=== PATIENT | male | born 1950 | race Caucasian/White ===

== ENCOUNTER 2016-05-24 07:51 | Observation (INO) | payer OTHER ==
[2016-05-23 10:33] LABS: BASOPHILS 0.2 %; BASOPHILS ABSOLUTE 0.02 10/3/uL (0.0-0.16); EOSINOPHILS 0.7 %; EOSINOPHILS ABSOLUTE 0.07 10/3/uL (0.0-0.53); HEMATOCRIT 30.8 % (40.0-51.0); HEMOGLOBIN 9.9 g/dL (13.6-17.8); IMMATURE GRANULOCYTES 0.7 %; IMMATURE GRANULOCYTES ABSOLUTE 0.07 10/3/uL (0.0-0.11); LYMPHOCYTES 18.3 %; LYMPHOCYTES ABSOLUTE 1.96 10/3/uL (0.67-4.30); MANUAL DIFF NO %; MEAN CORPUS HGB CONC 32.1 g/dL (32.0-36.0); MEAN CORPUSCULAR HEMOGLOB 34.4 pg (26.0-34.0); MEAN CORPUSCULAR VOLUME 106.9 fL (80-100); MEAN PLATELET VOLUME 9.3 fL (9.2-13.0); MONOCYTES 7.8 %; MONOCYTES ABSOLUTE 0.83 10/3/uL (0.21-1.20); NEUTROPHILS 72.3 %; NEUTROPHILS ABSOLUTE 7.75 10/3/uL (2.02-8.40); PLATELET COUNT 285 10/3/uL (150-400); RBC DISTRIBUTION WIDTH 17.5 % (12.0-16.0); RED CELL COUNT 2.88 10/6/uL (4.7-6.1); WHITE BLOOD CELLS 10.7 10/3/uL (4.5-10.5)
[2016-05-23 10:38] LABS: PARTIAL THROMBO TIME 29.6 SEC (22.5-37.2); PROTIME (NOT ORD) 13.3 SEC (12.0-14.5)
[2016-05-23 10:56] LABS: ALBUMIN 2.7 G/DL (3.5-5.0); ALKALINE PHOSPHATASE 220 U/L (45-117); BUN (BLOOD UREA NITROGEN) 27 MG/DL (6-23); CHLORIDE, SERUM 105 MMOL/L (96-112); CO2 (CARBON DIOXIDE) 24 MMOL/L (24-34); CREATININE 1.01 MG/DL (0.70-1.30); DIRECT BILIRUBIN 0.2 MG/DL (0.0-0.4); GFR AFRICAN AMERICAN 89 ML/MIN (>=60); GFR NON AFRICAN AMERICAN 77 ML/MIN (>=60); GLUCOSE, SERUM 125 MG/DL (60-99); INDIRECT BILIRUBIN(NOT ORDER) 0.3 MG/DL (0.1-0.9); POTASSIUM, SERUM 5.3 MMOL/L (3.5-5.3); SGOT(AST) 35 U/L (5-40); SGPT(ALT) 25 U/L (5-65); SODIUM, SERUM 138 MMOL/L (135-148); TOTAL BILIRUBIN 0.5 MG/DL (0-1.2); TOTAL PROTEIN 7.7 G/DL (6.0-8.5)
--- NOTE | ~2016-05-24 | CN ---
Consultation Report [facility] [address] [place]. [address] NAME: ALVIN EL : 50 STATUS : REG [facility] [place] PAT#: [id number] AGE: 66 ADM/REG DATE : 05/24/16 MR#: [id number] REPORT SERV DATE: 05/24/16 DICTATED BY: BIBIANA CANSECO DATE: 05/24/16 REPORT STATUS : Draft TRANSCRIBED BY: MODL DATE: 05/24/16 CARDIOLOGY CONSULTATION DATE OF CONSULTATION: 05/24/2016 REFERRING PHYSICIAN: Izaiah Luis MD, from ENT. REFERRING REASON: Postoperative chest pain and ischemic ECG changes. 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 Luis. I have limited outside records. The patient per Dr. Mack had poorly controlled hypertension prior to surgery at 200/102, but denied chest pain. The patient confirmed to me that he denied any recent chest pain. After he returned from surgery and woke up, he developed chest pain with 1.[address] depression in anterolateral leads, and troponin was found to be 0.05. After he received nitroglycerin and aspirin, his chest pain resolved and his ST-segment also resolved. He is currently chest pain free and hemodynamically stable. The patient has a long history of diabetes, long history of smoking, and hypertension. He also has some signs of LVH on echocardiogram in 2014 with preserved systolic function and elevated right-sided pressures with RVSP of 41 mmHg. He denies any chest pain or prior cardiac stress testing, but there is chronic dyspnea on exertion. He has reported on chronic disability for some depression and orthopedic issues. He has been battling large left facial tumor since 2014. He underwent a squamous cell of his left nostril surgery by Dr. Hemphill in 10/2014. He just presented with another advanced cancer which is reportedly protruding into the brain cavity. He has not seen by oncologist. I had a long discussion with his ENT surgeon and complete staging still need to be performed, but rightly palliative treatment with radiation or chemotherapy will be most appropriate. The rest of the review of systems is negative. PAST MEDICAL HISTORY: 1. 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 2. History of left nostril surgery by Dr. Hemphill in 10/2014 for squamous cell carcinoma. 3. Left facial paralysis. 4. Hypertension, poorly controlled. 5. Diabetes mellitus. 6. Smoking dependency. 7. Likely COPD. 8. LVH on echocardiogram in 2014 with preserved systolic function and mildly elevated right-sided pressures. Consultation Report [address] [place]. [address] NAME: ALVIN EL : 50 STATUS : REG [facility] – [place] PAT#: [id number] AGE: 66 ADM/REG DATE : 05/24/16 MR#: [id number] REPORT SERV DATE: 05/24/16 DICTATED BY: BIBIANA CANSECO DATE: 05/24/16 REPORT STATUS : Draft TRANSCRIBED BY: ALBAN DATE: 05/24/16 ALLERGIES: NO KNOWN DRUG ALLERGIES. HOME MEDICATIONS: Tegretol, Neurontin, insulin, lisinopril 30 mg once a day, Prilosec 40 mg once a day, trazodone, and metformin. SOCIAL HISTORY: The patient is on full disability. He lives with his girlfriend. He walks without any support. He has been smoking for the last 60 years one pack a day. Denies drinking alcohol or using street drugs. FAMILY HISTORY: Negative for sudden cardiac and premature coronary artery disease in the family. PHYSICAL EXAMINATION: GENERAL: Elderly apnea gentleman who looks older than his biological age with left facial nerve paralysis and surgical bandage over his left eye. There is some mild bleeding from his nose. HEENT: Pupils reactive to light and accommodation. Moist mucosa membrane. NECK: No JVD. Normal carotid upstroke. No carotid bruits. LUNGS: Decreased breath sounds with diffuse wheezing. COR: Normal S1, S2. No S3 or S4. No significant rub or murmurs. ABD: Soft, nontender, nondistended. EXTREMITIES: Decreased pedal pulses bilaterally, but no edema. SKIN: Warm with normal turgor. MS: No kyphosis. NEURO/PSY: Alert and oriented. Nonfocal. DATA: CBC is remarkable for hemoglobin 9.9, leukocytosis 10,000. Electrolytes yesterday were within normal limits. He has elevated glucose. ALP now is 220. Troponin 0.05. Electrocardiogram yesterday, on 05/23/2016 at 10:12 before the surgery revealed normal sinus rhythm 88 beats per minute with old anteroseptal NM. Borderline signs of LVH. After the surgery this afternoon at 12:30 p.m. revealed sinus tachycardia at 106 beats per minute with anteroseptal NM. LVH and 1.[address] depression in anterolateral leads, currently on monitor the ST-segment depression normalized. ASSESSMENT AND PLAN: 1. Status post left facial cancer extending to the brain cavity. 2. Demand ischemia. 3. Poorly controlled hypertension. The patient received aspirin and he is currently chest pain free. I would start him on Toprol-XL and do the echocardiogram. He is going to remain on Dr. Barraza's care overnight for observation. We will follow the cardiac enzymes and plan electrocardiogram and echocardiogram tomorrow. If his cardiac enzymes continue to go up, likely the patient should stay in the hospital and being seen by the oncologist about the prognosis which will determine if we will proceed with interventional evaluation of his coronary anatomy or not. Consultation Report [address] [address] NAME: ALVIN EL : 50 STATUS : REG [facility] – [place] PAT#: [id number] AGE: 66 ADM/REG DATE : 05/24/16 MR#: [id number] REPORT SERV DATE: 05/24/16 DICTATED BY: BIBIANA CANSECO DATE: 05/24/16 REPORT STATUS : Draft TRANSCRIBED BY: ALBAN DATE: 05/24/16 Based on my discussion with the ENT surgeon, very likely a palliative care will be appropriate. The patient is currently chest pain free, hemodynamically stable. We will follow the patient with you. EV[facility]EL[facility]/ALBAN Bibiana Canseco M.D. / [id number] CC: MD Tyrone Guzman M.D.
--- NOTE | ~2016-05-24 | OP ---
Record Of Operation [facility] [address] [place]. [address] NAME: ALVIN EL : 50 STATUS : REG [facility] [place] PAT#: [id number] AGE: 66 ADM/REG DATE : 05/24/16 MR#: [id number] REPORT SERV DATE: 05/24/16 DICTATED BY: ROE CASH DATE: 05/24/16 REPORT STATUS : Draft TRANSCRIBED BY: MODL DATE: 05/24/16 DATE OF PROCEDURE: 05/24/2016 SERVICE: Otolaryngology. SURGEON: Roe Cash MD. PREOPERATIVE DIAGNOSIS: Left maxillary/facial neoplasm. POSTOPERATIVE DIAGNOSIS: Left axillary/facial squamous cell carcinoma, P16 status is unknown. PROCEDURES PERFORMED: Left maxillary antrostomy with removal of contents and biopsy. INDICATIONS FOR PROCEDURE: The patient is a 66-year-old gentleman with left facial paralysis and large left facial tumor extending intracranially, into the pterygomaxillary fossa, director independent space, and infratemporal fossa. It is eroding his anterior maxillary sinus and involving the skin. Previous punch biopsy to his maxilla was not consistent with cancer diagnosis. Unfortunately, the wound has not healed well. Based on these findings, he presents to the OR for definitive diagnosis. ANESTHESIA: General endotracheal. ESTIMATED BLOOD LOSS: 5 mL. RETAINED ITEMS: None. COMPLICATION: None. OPERATIVE FINDINGS: 1. Dehiscent orbital floor. 2. Medialized uncinate process. 3. Squamous debris filling the entire maxillary sinus. 4. Visualized bony joaquin of the maxillary sinus including the posterior, superior, and lateral joaquin are entirely eroded. DESCRIPTION OF PROCEDURE: The patient was identified in the preoperative holding, where informed consent was ensured. He was brought to the operating room, placed on the operating room table in supine position. General endotracheal anesthesia was induced without difficulty. A time-out was performed to identify the patient and discuss the operative plan. The sinus endoscope was set up in the appropriate fashion. The nasal cavity was decongested on the left with epinephrine-soaked pledgets with 1:1000 epinephrine. On initial exam, there was significant crusting in the nasal cavity as well as the inferior turbinate. This was removed. The mucosa overall appeared healthy. The uncinate process was seen to be bulging. This was taken down carefully as inferiorly as possible. On palpation of the eye, the entire inferior orbital floor of the orbit was dehiscent. Record Of Operation [facility] [address] [place]. [address] NAME: ALVIN EL : 50 STATUS : REG [facility] [place] PAT#: [id number] AGE: 66 ADM/REG DATE : 05/24/16 MR#: [id number] REPORT SERV DATE: 05/24/16 DICTATED BY: ROE CASH DATE: 05/24/16 REPORT STATUS : Draft TRANSCRIBED BY: MODL DATE: 05/24/16 Consequently, periorbital fat could be seen protruding into the maxillary sinus. This was carefully avoided. The maxillary antrum was entered in a posterior-inferior fashion to avoid important structures. There was a combination of purulence and squamous drainage. Several directed biopsies were taken. The uncinate process was taken down inferiorly with a combination of backbiters and microdebrider. The maxillary sinus was widened safely with avoidance of the periorbital contents. The Cell>Points trap was placed on the suction and several fragments of squamous debris were removed from the maxillary sinus cavity. The bony fragments were left intact on the sinus joaquin with evidence of erosion. Pathology confirmed diagnosis of at least moderately differentiated squamous cell carcinoma. At this point, careful inspection was ensured and Titus powder was placed throughout the left maxillary sinus. The patient was turned back over to Anesthesia for awakening and extubation. He was transferred to the PACU in stable condition. He will follow up in approximately one week for re-evaluation. /ALBAN Roe Cash MD / [id number] CC: MD Tyrone Guzman M.D.
[~2016-05-24 07:51] MED LIST: ACET500CAP PO; ACTOS45 PO; ALEVE220 MG PO; ASABAYER PO; BAC PO; GARAMYCIN OINT15 GM TOP; GLUCPH PO; LANTUS SC; NEUR800 PO; PRILOSEC40 MG PO; TRAZ50 PO; ZESTRIL30 MG PO
[2016-05-24 14:15] LABS: CPK 50 U/L (0-200)
[2016-05-24 14:17] LABS: CK-MB 1.5 NG/ML
[2016-05-24 14:18] LABS: TROPONIN I 0.05 NG/ML (<0.05)
[2016-05-25] MEDS ORDERED: ASA5GR PO (12:30)
[2016-05-25] MEDS ORDERED: LOP25 PO (12:35)
[2016-05-25] MEDS ORDERED: IBU600 PO (12:37)
[2016-05-25] MEDS ORDERED: ZOFRAN4 PO (12:37)
[2016-05-25] MEDS ORDERED: ROXICODONE15 MG PO (12:39)
== END 2016-05-25 13:45 | disposition home or self-care (01) ==
LOC: SDC 07:51 → 6NO 18:53
PROVIDERS: Anesthesiology; Otolaryngology
PROC: 099R4ZZ Drainage of Left Maxillary Sinus, Percutaneous Endoscopic Approach (ICD-10-PCS; principal; 2016-05-24 09:30)
DX: C31.0 Malignant neoplasm of maxillary sinus (principal); G43.909 Migraine, unspecified, not intractable, without status migrainosus; G50.0 Trigeminal neuralgia; I10 Essential (primary) hypertension; K21.9 Gastro-esophageal reflux disease without esophagitis; E11.9 Type 2 diabetes mellitus without complications
CPT/HCPCS: 80048; 80076; 82550; 82553; 82962; 84484; 85025; 85610; 85730; 88305; 88331; 88342; 93005; 93306; A9270-GY; G0378; J0360; J0690; J2250; J2270; J2370; J2405; J2710; J3010

== ENCOUNTER 2016-05-26 23:00 | Emergency (ER) | payer OTHER ==
[~2016-05-26 23:00] MED LIST changes: +ASA5GR PO; +IBU600 PO; +LOP25 PO; +ROXICODONE15 MG PO; +ZOFRAN4 PO
[2016-05-26 23:07] LABS: BASOPHILS 0.2 %; BASOPHILS ABSOLUTE 0.01 10/3/uL (0.0-0.16); EOSINOPHILS 0.8 %; EOSINOPHILS ABSOLUTE 0.05 10/3/uL (0.0-0.53); HEMOGLOBIN 10.1 g/dL (13.6-17.8); IMMATURE GRANULOCYTES 0.8 %; IMMATURE GRANULOCYTES ABSOLUTE 0.05 10/3/uL (0.0-0.11); LYMPHOCYTES 14.3 %; LYMPHOCYTES ABSOLUTE 0.94 10/3/uL (0.67-4.30); MEAN CORPUS HGB CONC 32.6 g/dL (32.0-36.0); MEAN CORPUSCULAR HEMOGLOB 34.9 pg (26.0-34.0); MEAN CORPUSCULAR VOLUME 107.3 fL (80-100); MEAN PLATELET VOLUME 9.5 fL (9.2-13.0); MONOCYTES 8.7 %; MONOCYTES ABSOLUTE 0.57 10/3/uL (0.21-1.20); NEUTROPHILS 75.2 %; NEUTROPHILS ABSOLUTE 4.94 10/3/uL (2.02-8.40); PLATELET COUNT 347 10/3/uL (150-400); RBC DISTRIBUTION WIDTH 17.7 % (12.0-16.0); RED CELL COUNT 2.89 10/6/uL (4.7-6.1); WHITE BLOOD CELLS 6.6 10/3/uL (4.5-10.5)
[2016-05-26 23:13] LABS: MANUAL DIFF NO %
[2016-05-26 23:15] LABS: PROTIME (NOT ORD) 13.4 SEC (12.0-14.5)
[2016-05-26 23:23] LABS: CALCIUM, SERUM 9.3 MG/DL (8.5-10.4); CHLORIDE, SERUM 102 MMOL/L (96-112); CO2 (CARBON DIOXIDE) 27 MMOL/L (24-34); GFR AFRICAN AMERICAN 81 ML/MIN (>=60); GFR NON AFRICAN AMERICAN 70 ML/MIN (>=60); SODIUM, SERUM 139 MMOL/L (135-148)
[2016-05-26 23:24] LABS: BUN (BLOOD UREA NITROGEN) 22 MG/DL (6-23); CHEST PAIN PROFILE TAT 0 Hrs 21 Mins; GLUCOSE, SERUM 160 MG/DL (60-99); TROPONIN I 0.14 NG/ML (<0.05)
== END 2016-05-27 | disposition left against medical advice (07) ==
LOC: ER 23:00
PROVIDERS: Specialist
DX: R07.9 Chest pain, unspecified (principal); Z53.21 Procedure and treatment not carried out due to patient leaving prior to being seen by health care provider
CPT/HCPCS: 80048; 83735; 84484; 85025; 85610; 85730; 93005

== ENCOUNTER 2016-06-09 02:46 | Inpatient (IN) | payer OTHER ==
--- NOTE | ~2016-06-09 | CN ---
Consultation Report [facility] [address] [place]. [address] NAME: SAY XIAO : 50 STATUS : ADM Angel PAT#: [id number] AGE: 66 ADM/REG DATE : 06/09/16 MR#: [id number] REPORT SERV DATE: 06/09/16 DICTATED BY: GLEN SHIN JR. DATE: 06/09/16 REPORT STATUS : Draft TRANSCRIBED BY: MODConstantine DATE: 06/09/16 CONSULTATION DATE OF CONSULTATION: 06/09/2016 INDICATIONS FOR REFERRAL: Shortness of breath, hypertensive urgency, aortic stenosis. HISTORY OF PRESENT ILLNESS: Say Xiao is a 66-year-old white male smoker, who has locally invasive metastatic squamous cell carcinoma of the face, undergoing palliative XRT which had just begun. The patient was in his usual state of health on Friday and then began to develop shortness of breath. It became rapidly progressive on Friday prompting outside ER presentation with hypertensive urgency and systolic blood pressure greater than 220. With blood pressure control and sublingual nitroglycerin, the patient's shortness of breath resolved. There was no precordial chest pain. Outside EKG did not suggest ischemic etiology. Initial troponins were negative. The patient did have an elevated BNP at the outside facility. The patient denies shortness of breath or chest pain currently, complains of facial pain only. PAST MEDICAL HISTORY: Demand troponin leak on 05/17/2016. Echocardiography on 05/07/2016 revealed an ejection fraction of 55% to 60% with moderate aortic stenosis. The patient has hypertension; locally invasive squamous cell carcinoma of the face, eroding into the maxillary sinus orbit and skull; he has mixed hyperlipidemia; insulin requiring diabetes; hypertension; COPD. ALLERGIES: DENIED. CURRENT MEDICATIONS: Please see the MAR, which was reviewed. SOCIAL HISTORY: The patient is a pack-a-day smoker. He denies alcohol abuse or recreational drug use. FAMILY HISTORY: Negative for premature vascular events. REVIEW OF SYSTEMS: Include malaise, fatigue, facial pain, shortness of breath. He denies bleeding diathesis or fever or chills. The remainder as in HPI or negative. PHYSICAL EXAMINATION: VITAL SIGNS: Blood pressure 176/86, heart rate 87, respirations 16 to 18. GENERAL: Well developed, well nourished, in no acute distress. HEENT: Swollen and closed left eye socket with a protuberant mass in the left cheek and facial deformity. NECK: No JVD, supple, no bruits. LUNGS: Hyperexpanded but clear. Consultation Report [facility] [address] [place]. [address] NAME: SAY XIAO : 50 STATUS : ADM Angel PAT#: [id number] AGE: 66 ADM/REG DATE : 06/09/16 MR#: [id number] REPORT SERV DATE: 06/09/16 DICTATED BY: GLEN SHIN JR. DATE: 06/09/16 REPORT STATUS : Draft TRANSCRIBED BY: ALBAN DATE: 06/09/16 CARDIOVASCULAR: Regular rate and rhythm with a 2/6 systolic ejection murmur at the right upper sternal border and left sternal border. ABDOMEN: Soft, nontender. Normoactive bowel sounds, no hepatosplenomegaly. EXTREMITIES: No clubbing, cyanosis or edema. SKIN: No visible rashes. NEURO/PSY: Normal affect, alert and oriented x 3. LABORATORY DATA: Potassium 3.5, creatinine 0.65, magnesium 1.5, white count 10.6, hematocrit 31, platelets 284. MEDICAL DECISION MAKIN. Hypertensive urgency with volume overload. We will adjust medicines, follow troponins and EKGs. There is no evidence for acute coronary syndrome for now. 2. Moderate aortic stenosis. This was re-evaluated two weeks ago. I do not feel the need for repeat echo unless the above ACS evaluation changes. 3. Squamous cell carcinoma of the face, pain control with continuation of palliative XRT when clinically stable. FRANCISCO JAVIER/ALBAN Glen Shin Jr., M.D. / [id number] CC: Hiram Fierro M.D. Ondrej J Lisy, M.D.
--- NOTE | ~2016-06-09 | HP ---
History And Physical [facility] [address] [place]. [address] NAME: ALVIN XIAO : 50 STATUS : ADM nAgel PAT#: [id number] AGE: 66 ADM/REG DATE : 06/09/16 MR#: [id number] REPORT SERV DATE: 06/09/16 DICTATED BY: GAEL BAEZ DATE: 06/09/16 REPORT STATUS : Draft TRANSCRIBED BY: MODL DATE: 06/09/16 DATE OF ADMISSION: 06/09/2016 CHIEF COMPLAINT: I have accepted this patient in transfer from [facility] after I spoke with the ER physician there. HISTORY OF PRESENT ILLNESS: Briefly, this is a 66-year-old male with a history of diabetes mellitus, hypertension, squamous cell carcinoma of the face, who presented there with worsening shortness of breath and orthopnea for about for 48 hours now. He does not have a history of congestive heart failure, but appeared to have increased work of breathing and upon presentation, his blood pressure was 226/114 with an oxygen saturation of 80% on room air. All this was according to the ER physician there from the report I was given. The patient was given nitroglycerin sublingual tablets x3 with return of his blood pressures down to 175/74. Oxygen saturations had also improved to 95% on 2 L via nasal cannula. According to her, the chest x-ray showed possible right lower lobe pneumonia. His white count was 12,600. His troponins and EKG were negative. The patient had a BNP of 6500. We were requested to accept him in transfer for want of youth services librarian evaluation and management. At the time of my evaluation here, Mr. Xiao had no chest pain. He had no palpitations or orthopnea. He had no cough, hemoptysis, night sweats, or weight loss. He denied any recent falls or loss of consciousness. No history of recent fevers or chills. Did not have any prior history of nausea and vomiting, but upon arrival to [facility], the patient had vomiting. No other history of recent hematemesis, hematochezia, or hematuria. No other history of recent travel or exposures either. PAST MEDICAL HISTORY: Significant for poorly-controlled hypertension, diabetes mellitus, squamous cell carcinoma of the face which had extensive infiltration up into the cranial vault as well and has been excised. He has a history of COPD and currently smokes. SOCIAL HISTORY: He has about 50- to 84-[id number] history of smoking, continues to do so. Denied alcohol use or recreational drug use. FAMILY HISTORY: Noncontributory. MEDICATIONS: His medications at home were reviewed by me in the chart today and reordered by me. REVIEW OF SYSTEMS: As in history of present illness. All other systems were reviewed in detail and are quite unremarkable. PHYSICAL EXAMINATION: GENERAL: This is a pleasant 66-year-old, not in any acute distress. HEENT: Head is atraumatic, normocephalic. He is alert, awake, oriented to time, place, and person. His pupils are equal, reacting to light and accommodating. There is periorbital edema on the left eye. There is some facial asymmetry after his surgery. History And Physical [address] [address] NAME: ALVIN XIAO : 50 STATUS : ADM Angel PAT#: [id number] AGE: 66 ADM/REG DATE : 06/09/16 MR#: [id number] REPORT SERV DATE: 06/09/16 DICTATED BY: GAEL BAEZ DATE: 06/09/16 REPORT STATUS : Draft TRANSCRIBED BY: ALBAN DATE: 06/09/16 NECK: Supple with no jugular venous distention, lymphadenopathy, or thyromegaly. LUNGS: Clear to auscultation with no wheezes, rubs, or crackles. HEART: Heart sounds were regular with no murmurs, rubs, or gallops. ABDOMEN: Soft, nontender. Bowel sounds are present. EXTREMITIES: Showed no cyanosis, clubbing, or edema. NEURO: Grossly intact. No focal sensory or motor deficits. Higher functions appeared intact. Gait was not examined at this time. VITAL SIGNS: His vital signs today showed a temperature of 98.3, heart rate 107, respirations 18 a minute, blood pressure was 235/109. Oxygen saturations were 98% breathing 2 L of oxygen via nasal cannula. LABORATORY DATA: Laboratory data and other data, which accompanied the patient from [facility] were reviewed by me in the chart today. IMPRESSION: 1. New-onset congestive heart failure. 2. Uncontrolled hypertension. 3. Nausea and vomiting. 4. Hypoxemia. 5. Diabetes mellitus. 6. Squamous cell carcinoma of the face, status post excision. 7. Chronic obstructive pulmonary disease. 8. Left ventricular hypertrophy with preserved LV function in an echo done in 2014. PLAN: We will admit Mr. Xiao to the Hospitalist Service to a cardiac telemetry for a 24- hour observation period. For blood pressure control, we will start him on intravenous hydralazine, give him a dose of IV metoprolol and then start him back on his Toprol-XL that he was on. We will go ahead and consult Cardiology Service to see him and get an echocardiogram in the morning. We will also start him on Bumex 1 mg intravenously on an eight-hourly basis for 24 hours. For his nausea and vomiting. We will provide him with Zofran and Phenergan intravenously on an as needed basis. We were not able to look at the chest x-ray that was done at [facility]; however, we will check his lactate and procalcitonin levels, and start him on empiric IV antibiotics for his right lower lobe pneumonia and start him on bronchodilator treatments and continue his supplemental oxygen therapy. We will also place him on unfractionated heparin for DVT prophylaxis while here. I have discussed the above plans with the patient and his questions were answered, and he is agreeable to the above recommendations. He will certainly need followup of his cancer as well. Hospitalist Service will be following him during his stay here. /ALBAN Gael Baez M.D. History And Physical [address] [address] NAME: ALVIN XIAO : 50 STATUS : ADM Angel PAT#: [id number] AGE: 66 ADM/REG DATE : 06/09/16 MR#: [id number] REPORT SERV DATE: 06/09/16 DICTATED BY: GAEL BAEZ DATE: 06/09/16 REPORT STATUS : Draft TRANSCRIBED BY: ALBAN DATE: 06/09/16 / [id number] CC: Hiram Fierro M.D.
--- NOTE | ~2016-06-09 | DS ---
Discharge Summary [facility] [address] [place]. [address] NAME: ALVIN EL : 50 STATUS : DIS IN PAT#: [id number] AGE: 66 ADM/REG DATE : 06/09/16 MR#: [id number] REPORT SERV DATE: 06/12/16 DICTATED BY: SHAWN LOWE DATE: 06/11/16 REPORT STATUS : Draft TRANSCRIBED BY: MODL DATE: 06/11/16 ADMISSION DATE: 06/09/2016 DISCHARGE DATE: 06/11/2016 DISCHARGE DIAGNOSES: 1. Acute volume overload. 2. Acute hypoxic respiratory failure. 3. Baseline chronic obstructive pulmonary disease. 4. Hypertension. 5. Moderate aortic stenosis. 6. Invasive metastatic squamous cell carcinoma of the face, eroding into maxillary sinus, orbit, and skull. The patient is currently on palliative radiation therapy. 7. Insulin-dependent diabetes type 2. 8. Hyperlipidemia. CONSULTS: Cardiology. PROCEDURES: None. HOSPITAL COURSE: This is a 66-year-old gentleman who was admitted to the hospital with acute hypoxic respiratory failure related to acute volume overload. For details, please refer to H and P by Dr. Packer. In summary, the patient was admitted and was started on diuresis for the volume overload. The patient was seen by Cardiology, who did not feel that the patient needed to get a repeat echocardiogram especially when he had an echocardiogram a couple of weeks ago that showed benign ejection fraction. A decision was made to simply manage him symptomatically. The patient actually did really well just overnight and he actually wished to be discharged home; however, the patient was still requiring quite a bit of oxygen and his blood pressure was uncontrolled. The patient was monitored another night. By the time I assumed care of this patient which coincides with the day of discharge, the patient was on 2 L of oxygen per nasal cannula with normal respiratory dynamics. The patient again wished to be discharged home, and given his history of COPD as well as moderate aortic stenosis and the invasive metastatic squamous cell carcinoma, I felt that it was reasonable for the patient to be discharged home according to his wishes, to be followed closely as an outpatient. The patient will be discharged home with just a small dose of Lasix, and he will also be discharged home with a home oxygen. The patient has an appointment with his primary care physician at the end of this week, and he also has an appointment to get palliative radiation therapy on daily basis for the next four weeks. DISCHARGE MEDICATIONS: 1. Albuterol inhaler as a new medication. 2. Breo Ellipta as a new medication. 3. Lasix 20 mg p.o. daily as a new medication. 4. Potassium chloride 20 mEq p.o. daily as a new medication. Otherwise, no changes to his previous medications. DISPOSITION: Home. Discharge Summary [address] [address] NAME: ALVIN EL : 50 STATUS : DIS IN PAT#: [id number] AGE: 66 ADM/REG DATE : 06/09/16 MR#: [id number] REPORT SERV DATE: 06/12/16 DICTATED BY: SHAWN LOWE DATE: 06/11/16 REPORT STATUS : Draft TRANSCRIBED BY: ALBAN DATE: 06/11/16 FOLLOWUP: 1. Please follow up with PCP as already scheduled. 2. Please follow up with radiation oncologist, Dr. Jenkins, as already scheduled. 3. Please follow up with ENT as the patient is already scheduled. A total of 25 minutes spent in coordinating this patient's discharge today. [facility] [place] Shawn Lowe MD / [id number] CC: MD Tyrone Guo M.D.
[2016-06-09 07:36] LABS: BASOPHILS 0.2 %; BASOPHILS ABSOLUTE 0.02 10/3/uL (0.0-0.16); EOSINOPHILS 0.2 %; EOSINOPHILS ABSOLUTE 0.02 10/3/uL (0.0-0.53); HEMOGLOBIN 10.1 g/dL (13.6-17.8); IMMATURE GRANULOCYTES 0.5 %; IMMATURE GRANULOCYTES ABSOLUTE 0.05 10/3/uL (0.0-0.11); LYMPHOCYTES 13.2 %; MEAN CORPUS HGB CONC 32.6 g/dL (32.0-36.0); MEAN CORPUSCULAR HEMOGLOB 34.4 pg (26.0-34.0); MEAN CORPUSCULAR VOLUME 105.4 fL (80-100); MEAN PLATELET VOLUME 9.6 fL (9.2-13.0); MONOCYTES 9.1 %; MONOCYTES ABSOLUTE 0.97 10/3/uL (0.21-1.20); NEUTROPHILS 76.8 %; NEUTROPHILS ABSOLUTE 8.18 10/3/uL (2.02-8.40); PLATELET COUNT 284 10/3/uL (150-400); RBC DISTRIBUTION WIDTH 17.6 % (12.0-16.0); RED CELL COUNT 2.94 10/6/uL (4.7-6.1)
[2016-06-09 07:38] LABS: MANUAL DIFF NO %; WHITE BLOOD CELLS 10.6 10/3/uL (4.5-10.5)
[2016-06-09 07:56] LABS: A/G RATIO 0.4 (0.7-1.9); ALBUMIN 2.4 G/DL (3.5-5.0); CALCIUM, SERUM 8.6 MG/DL (8.5-10.4); CHLORIDE, SERUM 99 MMOL/L (96-112); CO2 (CARBON DIOXIDE) 27 MMOL/L (24-34); CREATININE 0.65 MG/DL (0.70-1.30); GFR AFRICAN AMERICAN 118 ML/MIN (>=60); GFR NON AFRICAN AMERICAN 101 ML/MIN (>=60); GLOBULIN 5.8 G/DL (2.5-4.1); GLUCOSE, SERUM 129 MG/DL (60-99); PHOSPHORUS, SERUM 2.9 MG/DL (2.5-4.5); POTASSIUM, SERUM 3.5 MMOL/L (3.5-5.3); SGOT(AST) 28 U/L (5-40); SGPT(ALT) 18 U/L (5-65); SODIUM, SERUM 139 MMOL/L (135-148); TOTAL BILIRUBIN 0.7 MG/DL (0-1.2); TOTAL PROTEIN 8.2 G/DL (6.0-8.5)
[2016-06-09 07:57] LABS: ALKALINE PHOSPHATASE 188 U/L (45-117); BUN (BLOOD UREA NITROGEN) 11 MG/DL (6-23)
[2016-06-09 08:26] LABS: PROCALCITONIN 0.15 ng/mL (<0.5)
[2016-06-09 14:05] LABS: TROPONIN I 0.07 NG/ML (<0.05)
[2016-06-09 16:27] LABS: PROCALCITONIN 0.18 ng/mL (<0.5)
[2016-06-10 06:29] LABS: BASOPHILS 0.1 %; BASOPHILS ABSOLUTE 0.02 10/3/uL (0.0-0.16); EOSINOPHILS 0.1 %; EOSINOPHILS ABSOLUTE 0.01 10/3/uL (0.0-0.53); HEMATOCRIT 32.3 % (40.0-51.0); HEMOGLOBIN 10.3 g/dL (13.6-17.8); IMMATURE GRANULOCYTES 0.4 %; IMMATURE GRANULOCYTES ABSOLUTE 0.05 10/3/uL (0.0-0.11); LYMPHOCYTES 11.5 %; LYMPHOCYTES ABSOLUTE 1.57 10/3/uL (0.67-4.30); MEAN CORPUS HGB CONC 31.9 g/dL (32.0-36.0); MEAN CORPUSCULAR HEMOGLOB 33.9 pg (26.0-34.0); MEAN CORPUSCULAR VOLUME 106.3 fL (80-100); MEAN PLATELET VOLUME 9.7 fL (9.2-13.0); MONOCYTES 12.7 %; MONOCYTES ABSOLUTE 1.73 10/3/uL (0.21-1.20); NEUTROPHILS 75.2 %; NEUTROPHILS ABSOLUTE 10.23 10/3/uL (2.02-8.40); PLATELET COUNT 293 10/3/uL (150-400); RBC DISTRIBUTION WIDTH 17.6 % (12.0-16.0); RED CELL COUNT 3.04 10/6/uL (4.7-6.1); WHITE BLOOD CELLS 13.6 10/3/uL (4.5-10.5)
[2016-06-10 06:40] LABS: BUN (BLOOD UREA NITROGEN) 12 MG/DL (6-23); CALCIUM, SERUM 8.7 MG/DL (8.5-10.4); CHLORIDE, SERUM 99 MMOL/L (96-112); CO2 (CARBON DIOXIDE) 27 MMOL/L (24-34); CREATININE 0.72 MG/DL (0.70-1.30); GFR AFRICAN AMERICAN 113 ML/MIN (>=60); GFR NON AFRICAN AMERICAN 97 ML/MIN (>=60); POTASSIUM, SERUM 3.8 MMOL/L (3.5-5.3); SODIUM, SERUM 138 MMOL/L (135-148)
[2016-06-10 06:43] LABS: GLUCOSE, SERUM 48 MG/DL (60-99)
[2016-06-10 06:51] LABS: MANUAL DIFF NO %
[2016-06-10 19:03] LABS: T PROTEIN (ELECT)(NOT OR 7.4 G/DL (6.0-8.5)
[2016-06-11 05:16] LABS: BASOPHILS 0.2 %; BASOPHILS ABSOLUTE 0.02 10/3/uL (0.0-0.16); EOSINOPHILS 0.3 %; EOSINOPHILS ABSOLUTE 0.04 10/3/uL (0.0-0.53); HEMATOCRIT 29.1 % (40.0-51.0); HEMOGLOBIN 9.4 g/dL (13.6-17.8); IMMATURE GRANULOCYTES 0.4 %; IMMATURE GRANULOCYTES ABSOLUTE 0.05 10/3/uL (0.0-0.11); LYMPHOCYTES 12.3 %; LYMPHOCYTES ABSOLUTE 1.56 10/3/uL (0.67-4.30); MANUAL DIFF NO %; MEAN CORPUS HGB CONC 32.3 g/dL (32.0-36.0); MEAN CORPUSCULAR HEMOGLOB 34.1 pg (26.0-34.0); MEAN CORPUSCULAR VOLUME 105.4 fL (80-100); MEAN PLATELET VOLUME 9.6 fL (9.2-13.0); MONOCYTES 10.5 %; MONOCYTES ABSOLUTE 1.34 10/3/uL (0.21-1.20); NEUTROPHILS 76.3 %; PLATELET COUNT 247 10/3/uL (150-400); RBC DISTRIBUTION WIDTH 17.3 % (12.0-16.0); RED CELL COUNT 2.76 10/6/uL (4.7-6.1); WHITE BLOOD CELLS 12.7 10/3/uL (4.5-10.5)
[2016-06-11 05:35] LABS: BUN (BLOOD UREA NITROGEN) 15 MG/DL (6-23); CALCIUM, SERUM 8.2 MG/DL (8.5-10.4); CHLORIDE, SERUM 102 MMOL/L (96-112); CO2 (CARBON DIOXIDE) 24 MMOL/L (24-34); CREATININE 0.82 MG/DL (0.70-1.30); GFR AFRICAN AMERICAN 107 ML/MIN (>=60); GFR NON AFRICAN AMERICAN 92 ML/MIN (>=60); GLUCOSE, SERUM 51 MG/DL (60-99); POTASSIUM, SERUM 4.2 MMOL/L (3.5-5.3); SODIUM, SERUM 136 MMOL/L (135-148)
[2016-06-11 10:20] LABS: A/G 0.57 RATIO (0.9-2.10); ALB RELATIVE % 36.2 % (60.0-89.0); ALBUMIN (ELECTRO) 2.68 GM/DL (3.2-5.5); ALPHA 1 (ELECTRO) 0.44 GM/DL (0.1-0.4); ALPHA 1 RELAT % (NOT ORD) 5.9 % (1.0-4.0); ALPHA 2 (ELECTRO) 1.36 GM/DL (0.5-1.10); ALPHA 2 RELAT % 18.4 % (4.5-26.0); BETA GLOBULIN (SPE) 0.83 GM/DL (0.60-1.30); BETA RELATIVE % 11.2 % (9.0-22.0); GAMMA GLOBULIN (SPE) 2.09 G/DL (0.70-1.60); GAMMA RELAT % 28.3 % (6.0-22.0)
[2016-06-11] MEDS ORDERED: NORV5 PO (13:18)
[2016-06-11] MEDS ORDERED: L20 PO (13:21)
[2016-06-11] MEDS ORDERED: KLOR-CON20 MEQ PO (13:23)
[2016-06-11] MEDS ORDERED: PROVHFA INH (13:28)
[2016-06-11] MEDS ORDERED: BREO ELLIPTA INH (13:28)
[2016-06-11] MEDS ORDERED: LOP50 PO (13:29)
[2016-06-11] MEDS ORDERED: LIPITOR40 PO (14:01)
[2016-06-11] MEDS ORDERED: TEG200 PO (14:01)
== END 2016-06-11 15:17 | disposition home or self-care (01) | DRG 189 ==
LOC: 6NO 02:46
PROVIDERS: Internal Medicine; Internal Medicine Cardiovascular Disease; Internal Medicine Pulmonary Disease
DX: J96.01 Acute respiratory failure with hypoxia (principal); J18.9 Pneumonia, unspecified organism; C41.0 Malignant neoplasm of bones of skull and face; E87.70 Fluid overload, unspecified; J44.0 Chronic obstructive pulmonary disease with (acute) lower respiratory infection; I24.8 Other forms of acute ischemic heart disease; C30.0 Malignant neoplasm of nasal cavity; I16.0 Hypertensive urgency; E11.649 Type 2 diabetes mellitus with hypoglycemia without coma; I10 Essential (primary) hypertension; E78.2 Mixed hyperlipidemia; F17.210 Nicotine dependence, cigarettes, uncomplicated; I35.0 Nonrheumatic aortic (valve) stenosis; Z79.4 Long term (current) use of insulin; Z85.828 Personal history of other malignant neoplasm of skin; Z92.3 Personal history of irradiation
CPT/HCPCS: 71020; 77336; 77386; 80048; 80053; 82607; 82962; 83605; 83615; 83735; 83880; 84100; 84145; 84155; 84165; 84443; 84484; 85025; 86255; 93005; 94640; A9270-GY; J0360; J0456; J2550